=== PATIENT | female | born 1950 | race Caucasian/White ===

== ENCOUNTER → 2020-02-25 07:12 | Outpatient (CLI) | payer OTHER, SELFPAY ==
--- NOTE | ~2020-02-25 | XR_ITS ---
EXAMINATION: XR chest 2V EXAM DATE: 02/25/2020 07:52 INDICATION: Histoplasmosis. Cough since 2017. Right lung surgery. TECHNIQUE: Frontal and lateral projections of the chest obtained and reviewed. Comparison is made to prior examination from 05/06/2016. FINDINGS: Right midlung zone suture material. Mild hyperinflation. The lungs are clear. There are n o pleural effusions. The cardiomediastinal silhouette is within normal limits. There is no pneumoth orax suspected. The bones and soft tissues are unremarkable. IMPRESSION: No acute cardiopulmonary findings. Reviewed, dictated and finalized at location A. GRADER
--- NOTE | ~2020-02-25 | MM_ITS ---
EXAMINATION: MM screening elkin BI w cyn HISTORY: Screening mammogram TECHNIQUE: Craniocaudal and mediolateral oblique 3-D tomosynthesis images were obtained and synthetic 2-D images were generated. CAD analysis was submitted and interpreted. COMPARISON: 01/13/2018, 04/25/2016, 08/25/2014 bilateral digital screening mammogram examinations BREAST PARENCHYMAL COMPOSITION: There are scattered areas of fibroglandular density. FINDINGS: Stable right breast mass with minimal benign calcification on the current examination. Ther e is no evidence of suspicious mass, calcification, or architectural distortion to suggest malignancy in either breast. There has been no suspicious interval change. IMPRESSION: 1. No mammographic evidence of malignancy. 2. Recommend routine screening mammography in one year. BI-RADS Category 2: Benign finding(s). Reviewed, dictated and finalized at location A. SE SUPERVISOR
--- NOTE | ~2020-02-25 | XR_ITS ---
EXAMINATION: XR shoulder RT min 2V EXAM DATE: 02/25/2020 07:52 INDICATION: Right shoulder pain. TECHNIQUE: The following right shoulder projections obtained: frontal projection with internal rotati on, frontal projection with external rotation, Grashey, and axillary (4+ views). There is no prior s tudy for comparison. FINDINGS: No evidence of right shoulder rotator cuff calcific tendinosis. Unremarkable right nitza ohumeral and acromioclavicular joints. There are no acute fractures or dislocations identified. Ther e is no subcutaneous gas. The soft tissue is unremarkable. Right midlung zone suture material. There is a stent which could be in the left subclavian origin. IMPRESSION: 1. Unremarkable XR shoulder RT min 2V exam. Reviewed, dictated and finalized at location A. HOSPICE
== END ==
PROVIDERS: PCP Family Medicine; Visit Provider Family Medicine
DX: Z12.31 Encounter for screening mammogram for malignant neoplasm of breast (principal); M25.511 Pain in right shoulder; G89.29 Other chronic pain; B39.9 Histoplasmosis, unspecified
CPT/HCPCS: 71046; 73030; 77063; 77067

== ENCOUNTER 2020-07-24 09:26 | Outpatient (CLI) | payer OTHER, SELFPAY ==
--- NOTE | 2020-07-24 09:53 | ECHO_ITS ---
Patient Info Name: Rosita Moreno Age: 69 years : 1950 Gender: Female Ht: 62 in Wt: 118 lbs BSA: 1.53 m2 HR: 70 bpm BP: 135 / 68 mmHg Technical Quality: Good Exam Date: 07/24/2020 10:16 AM Exam Location: [facility] Patient Status: Outpatient Admit Date: 07/24/2020 Staff Ordering Physician: Jaime Yung DO Foreign Exchange Student Coordinator: Gabrielle Valiente RDCS Attending Provider: Jaime Yung DO Referring Physician: Dilshad SAHA; Exam Type: CA echo doppler color flow Study Info Indications - monson Complete two-dimentional, color flow and Doppler transthoracic echocardiogram is performed with agitated saline and with contrast to opacify the left ventricle and to improve the delineation of the left ventricle endocardial borders. Complete two-dimensional, color flow and Doppler transthoracic echocardiogram is performed. Summary 1. Complete two-dimensional, color flow and Doppler transthoracic echocardiogram is performed. 2. Left ventricular chamber dimension is normal. 3. Left ventricular systolic function is normal, estimated at 65-70%. 4. The left ventricular diastolic function is grade I diastolic dysfunction. 5. E/e' 13 is mildly elevated. 6. There is trace mitral valve regurgitation. 7. There is trace tricuspid valve regurgitation. 8. No pulmonary hypertension, estimated pulmonary arterial systolic pressure is 24 mmHg. Left Ventricle E/e' 13 is mildly elevated. Left ventricular chamber dimension is normal. Left ventricular systolic function is normal, estimated at 65-70%. The left ventricular diastolic function is grade I diastolic dysfunction. Right Ventricle Right ventricular chamber dimension is normal. Right ventricular systolic function is normal. Left Atria Left atrial chamber dimension is normal. Right Atria Right atrial chamber dimension is normal. Aortic Valve The aortic valve is trileaflet. There is no aortic valve stenosis. There is no aortic valve regurgitation. Pulmonic Valve There is no pulmonic regurgitation. Mitral Valve There is no mitral valve stenosis. There is trace mitral valve regurgitation. Tricuspid Valve There is trace tricuspid valve regurgitation. No pulmonary hypertension, estimated pulmonary arterial systolic pressure is 24 mmHg. Pericardium/Pleural There is no pericardial effusion. Inferior Vena Cava Normal inferior vena cava with >50% collapse upon inspiration consistent with normal right atrial pressure, 5 mmHg. Aorta The aortic root size at the sinus of Valsalva is normal. Left Ventricular Outflow Tract Name Value Normal LVOT 2D LVOT Diameter 2.0 cm LVOT Doppler LVOT Peak Gradient 4 mmHg LVOT Mean Gradient 3 mmHg LVOT VTI 25 cm LVOT VTI/AV VTI Ratio 1.0 LVOT Stroke Volume 74 ml LVOT CO 15.1 l/min LVOT CI 9.9 l/min/m2 Pulmonic Valve Name
== END 2020-07-24 09:27 | disposition home or self-care (01) ==
LOC: ANHCARD 09:28
PROVIDERS: PCP Family Medicine; Visit Provider Internal Medicine Cardiovascular Disease
DX: R06.00 Dyspnea, unspecified (principal)
CPT/HCPCS: C8929

== ENCOUNTER → 2020-08-05 06:34 | Outpatient (CLI) | payer OTHER, SELFPAY ==
[2020-08-05 17:12] LABS: SARS-CoV-2 RNA PCR Negative
== END ==
PROVIDERS: PCP Family Medicine; Visit Provider Family Medicine
DX: R68.89 Other general symptoms and signs (principal); Z20.822 Contact with and (suspected) exposure to COVID-19
CPT/HCPCS: C9803; U0003; U0005

== ENCOUNTER → 2023-01-05 12:41 | Outpatient (CLI) | payer MEDICARE, SELFPAY ==
--- NOTE | ~2023-01-05 | MM_ITS ---
EXAMINATION: MM screening elkin BI w cyn HISTORY: Screening mammogram TECHNIQUE: Craniocaudal and mediolateral oblique 3-D tomosynthesis images were obtained and synthetic 2-D images were generated. CAD analysis was submitted and interpreted. COMPARISON: 02/25/2020, 01/13/2018 bilateral screening mammogram examinations BREAST PARENCHYMAL COMPOSITION: There are scattered areas of fibroglandular density. FINDINGS: There is a stable circumscribed approximately 5.8 x 8.3 mm mass with benign calcification i n the central right breast, likely a benign fibroadenoma. There is no evidence of suspicious mass, ca lcification, or architectural distortion to suggest malignancy in either breast. There has been no zuñiga spicious interval change. IMPRESSION: 1. Benign finding. No mammographic evidence of malignancy. 2. Recommend routine screening mammography in one year. BI-RADS Category 2: Benign finding(s). Reviewed, dictated and finalized at location A. INUM POURER
== END ==
PROVIDERS: Visit Provider Family Medicine
DX: Z12.31 Encounter for screening mammogram for malignant neoplasm of breast (principal)
CPT/HCPCS: 77063; 77067

== ENCOUNTER 2023-01-25 07:30 | Outpatient (CLI) | payer MEDICARE, SELFPAY ==
--- NOTE | ~2023-01-25 | US_ITS ---
EXAMINATION: US art doppler w press UE BI DATE: 01/25/2023 08:17 INDICATION: Decreased right upper extremity pulses TECHNIQUE: Segmental pressures and plethysmographic and Doppler waveforms of the upper extremity ursula anna were obtained. COMPARISON: None. FINDINGS: Right and left brachial artery pressures of 150 mm Hg and 143 mm Hg, respectively, are concordant (no rmal difference <= 30 mmHg). The right finger:brachial systolic pressure ratio is 1.11 (normal > 0.8) . Segmental pressure gradients are normal. Arterial waveforms are triphasic at the right brachial art rakesh and biphasic at the remaining arteries in the right upper extremity with brisk systolic upstrokes throughout (normal upstroke < 0.2 s). The left finger:brachial systolic pressure ratio is 2.99. Segmental pressure gradients are normal. Ar terial waveforms are triphasic at the left axillary and brachial arteries and biphasic at the remaini ng arteries in the left upper limb with brisk systolic upstrokes throughout. IMPRESSION: 1. No significant arterial occlusive disease to either upper limb with normal bilateral finger brachi al indices. Reviewed, dictated and finalized at location A. NG AND MOLDING MACHINE OPERATOR IMPRESSION: 1. No significant arterial occlusive disease to either upper limb with normal b ilateral finger brachial indices.
== END 2023-01-25 07:31 | disposition home or self-care (01) ==
LOC: CHSIMG 07:31
PROVIDERS: PCP Family Medicine; Visit Provider Family Medicine
DX: I77.1 Stricture of artery (principal)
CPT/HCPCS: 93923

== ENCOUNTER 2023-02-02 08:54 | Outpatient (CLI) | payer MEDICARE, SELFPAY ==
--- NOTE | ~2023-02-02 | US_ITS ---
EXAMINATION: US aorta DATE: 02/02/2023 09:20 INDICATION: Stricture of the aorta TECHNIQUE: Grayscale, color Doppler, and pulsed Doppler images of the aorta and common iliac arteries were obtained. COMPARISON: None. FINDINGS: Visualized inferior vena cava is normal. The proximal aorta measures 1.6 cm. The mid aorta measures 1 .7 cm. The distal aorta measures 1.2 cm. The right common iliac artery measures 0.8 cm. The left comm on iliac artery measures 0.8 cm. On color Doppler there are normal triphasic waveforms in the abdomin al aorta and the bilateral iliac arteries. IMPRESSION: 1. Normal caliber abdominal aorta. Reviewed, dictated and finalized at location A. SOLUTION ARCHITECT
== END 2023-02-02 08:55 | disposition home or self-care (01) ==
PROVIDERS: PCP Family Medicine; Visit Provider Family Medicine
DX: I77.1 Stricture of artery (principal)
CPT/HCPCS: 76775

== ENCOUNTER 2023-10-28 13:30 | Outpatient (CLI) | payer MEDICARE, SELFPAY | END 2023-10-28 13:31 | disposition home or self-care (01) | LOC: ANHAUDIO 13:32 | PROVIDERS: PCP Family Medicine; Visit Provider Family Medicine | DX: H90.3 Sensorineural hearing loss, bilateral (principal) | CPT/HCPCS: 92557; 92567 ==

== ENCOUNTER 2024-01-10 10:26 | Outpatient (CLI) | payer MEDICARE, SELFPAY ==
--- NOTE | ~2024-01-10 | MM_ITS ---
EXAMINATION: MM screening elkin BI w cyn HISTORY: Screening TECHNIQUE: Craniocaudal and mediolateral oblique 3-D tomosynthesis images were obtained and synthetic 2-D images were generated. CAD analysis was submitted and interpreted. COMPARISON: Comparison to multiple prior studies sequentially, with oldest reviewed study dated 10/2014. BREAST PARENCHYMAL COMPOSITION: Not dense: There are scattered areas of fibroglandular density. FINDINGS: There is a right breast mass in the central aspect of the right breast, middle third. The l eft breast is stable without evidence for malignancy. IMPRESSION: 1. Right breast mass, partially obscured by fibroglandular tissue. 2. Additional mammographic views and possible breast ultrasound are recommended. BI-RADS Category 0: Incomplete: Needs additional imaging evaluation. Reviewed, dictated and finalized at location B. H ELECTRICIAN IMPRESSION: 1. Right breast mass, partially obscured by fibroglandular tissue. 2. Additional mammographic views and possible breast ultrasound are recommended . BI-RADS Category 0: Incomplete: Needs additional imaging evaluation.
== END 2024-01-10 10:27 | disposition home or self-care (01) ==
PROVIDERS: PCP Family Medicine; Visit Provider Family Medicine
DX: Z12.31 Encounter for screening mammogram for malignant neoplasm of breast (principal); R92.8 Other abnormal and inconclusive findings on diagnostic imaging of breast
CPT/HCPCS: 77063; 77067

== ENCOUNTER 2024-01-24 12:59 | Outpatient (CLI) | payer MEDICARE, SELFPAY ==
--- NOTE | ~2024-01-24 | MMUS_ITS ---
EXAMINATION: MM diagnostic elkin RT w cyn, US breast RT limited HISTORY: Follow-up right breast mass TECHNIQUE: Additional 3-D tomosynthesis images of the right breast were performed and synthetic 2-D i mages were generated. CAD analysis was submitted and interpreted. High resolution Limited right breas t ultrasound was performed. COMPARISON: Comparison to multiple prior studies sequentially, with oldest reviewed study dated 10/2016. BREAST PARENCHYMAL COMPOSITION: Not dense: There are scattered areas of fibroglandular density. FINDINGS: MAMMOGRAPHIC FINDINGS: There is a low-density mass in the upper inner quadrant of the right breast, middle third. There is a n associated internal calcification. There are no suspicious clustered calcifications or architectura l distortion. ULTRASOUND: Limited right breast ultrasound: 1:00, 2 cm from the nipple there is an oval hypoechoic mass measurin g 10 x 8 x 3 mm with internal echogenic focus, consistent with calcification. There is parallel orien tation, circumscribed margins, no internal vascularity or posterior features. This corresponds to the mammographic finding. No other masses are identified. IMPRESSION: 1. Probable benign right breast mass at 1:00, 2 cm from the nipple measuring 10 mm. 2. Recommend 6 month follow-up Limited right breast ultrasound and diagnostic mammogram. BI-RADS category 3, probably benign findings. Reviewed, dictated and finalized at location B. RUSH ARTIST PHOTOGRAPHY IMPRESSION: 1. Probable benign right breast mass at 1:00, 2 cm from the nipple measuring 10 mm. 2. Recommend 6 month follow-up Limited right breast ultrasound and diagnostic m ammogram. BI-RADS category 3, probably benign findings.
== END 2024-01-24 13:00 | disposition home or self-care (01) ==
PROVIDERS: PCP Family Medicine; Visit Provider Family Medicine
DX: N63.10 Unspecified lump in the right breast, unspecified quadrant (principal); R92.8 Other abnormal and inconclusive findings on diagnostic imaging of breast
CPT/HCPCS: 76642; 77061; 77065; G0279

== ENCOUNTER 2024-07-25 10:04 | Outpatient (CLI) | payer MEDICARE, SELFPAY ==
--- NOTE | ~2024-07-25 | MMUS_ITS ---
EXAMINATION: MM diagnostic elkin RT w cyn, US breast RT limited HISTORY: Follow-up right breast mass TECHNIQUE: Additional 3-D tomosynthesis images of the right breast were performed and synthetic 2-D i mages were generated. CAD analysis was submitted and interpreted. High resolution Limited right breas t ultrasound was performed. COMPARISON: Comparison to multiple prior studies sequentially, with oldest reviewed study dated 10/2016. BREAST PARENCHYMAL COMPOSITION: Not dense: There are scattered areas of fibroglandular density. FINDINGS: MAMMOGRAPHIC FINDINGS: Low-density mass in the upper outer quadrant of the right breast, middle third is unchanged from prio r examination allowing for technique. No new masses, calcifications or architectural distortion. ULTRASOUND: Limited right breast ultrasound: At 1:00, 2 cm from the nipple there is an oval hypoechoic mass with echogenic hilum measuring 10 x 8 x 4 mm compared with 10 x 8 x 3 mm on 01/24/2024. IMPRESSION: 1. Stable benign-appearing right breast mass, compatible with intramammary lymph node. 2. Routine yearly screening mammogram and regular clinical breast examination are recommended. BI-RADS Category 2: Benign finding(s). Reviewed, dictated and finalized at location A. IMPRESSION: 1. Stable benign-appearing right breast mass, compatible with intramammary lymp h node. 2. Routine yearly screening mammogram and regular clinical breast examination a re recommended. BI-RADS Category 2: Benign finding(s).
--- OUTSIDE RECORDS SUMMARY | 2024-07-25 11:24 | XMS_ITS | Clinical Summary ---
Author Organization [facility] al Address [address] [place] [address] Care Team Providers Care Electrostatic Painter Name Role Phone Marco Szymanski DO Primary Care Provider [phone] Allergies No known active allergies Medical History Medical History Date Comments Pain in joint Arthralgia of mu ltiple sites - (Added by TW Conv) Personal history of other di seases of the circulatory system History of hypertension - (A dded by TW Conv) Personal history of other en docrine, nutritional and metabolic disease History of hyperchol esterolemia - (Added by TW Conv) Social History Tobacco Use Types Packs/Day Years Used Date Smoking Tobacco: Never Comments Unknown Sex and Gender Information Value Date Recorded Sex Assigned at Not on file Legal Sex 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 Gender Identity Female 03/26/2020 1:00 PM WELL SURVEYING ENGINEER Sexual Orientation Straight 03/26/2020 1: 00 PM WELL SURVEYING ENGINEER Obstetrics History Last Filed Vital Signs Vital Sign Reading Time Taken Comments Blood Pressure 152/64 05/02/2017 1:00 PM CDT Pulse 68 05/02/2017 1:00 PM CDT Temperature - - Respiratory Rate - - Oxygen Saturation 96% 08/18/2016 12:37 PM CDT Inhaled Oxygen Concentration - - Weight 62.2 kg (137 lb 3.1 oz) 05/02/2017 1:00 P M CDT Height 157.5 cm (5' 2) 05/02/2017 1:00 PM CDT Body Mass Index 25.09 05/02/2017 1:00 PM CDT Plan of Treatment Not on file Insurance [employer] [facility] [employer]LINK OPEN ACCESS [place] [address] Care Teams Electrostatic Painter Relationship Specialty Start Date End Date Marco Szymanski DO PCP - General 06/14/16
--- OUTSIDE RECORDS SUMMARY | 2024-07-25 11:24 | XMS_ITS | Continuity of Care Document ---
Author Organization [facility] Address [address] [place] [address] Phone Care Team Providers Care Housekeeping Director Name Role Phone Carlos LINARES MD, Emilio Unavailable Unavailable Advance Directives Directive Yes / No Effective Date File Name No Information Encounters Encounter Description Practice Location Reason(s) For Visit Diagnoses Date Provider Providers Copied on Encounter [facility] [employer] [facility], [address], [id number], [place] tel:[phone] [facility] No Information Apr-0 5201 3 Carlos Jhaveri. [address] [facility], [facility] [address], [place], [place], [id number] , [place]. tel:[phone] Family History Family Member Type Diagnosis Age At Onset No Information Payers Payer name Insurance type Covered green party ID Authoriza tion(s) No Information Social History Type Description Quantity Date Captured Comments Sex Female Smoking Status No Information Chief Complaint And Reason For Visit No Information Reason For Referral Reason For Referral No Information History Of Present Illness Encounter Date Complaint History Of Prese nt Illness No Information Functional Status Date Functional Assessmen t No Information Instructions Date Instruction Additional Infor mation No Information Assessments Type Assessment Date No Information Patient Care Teams Name Effective Dates (start - stop) Status Members No Information
--- OUTSIDE RECORDS SUMMARY | 2024-07-25 11:24 | XMS_ITS | Referral Summary ---
Author Organization 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
--- OUTSIDE RECORDS SUMMARY | 2024-07-25 11:24 | XMS_ITS | Continuity of Care Document ---
Author Organization [facility] Address [address] [place] [address] [address] [place] [address] Phone Care Team Providers Care Seedling Sorter Name Role Phone Toby LINARES MD, Jarvis Unavailable Unavailable Procedures Procedure Date AFTER CATARACT LASER SURGERY CATARACT SURG W/IOL, 1 STAGE CATARACT SURG W/IOL, 1 STAGE Advance Directives Directive Yes / No Effective Date File Name No Information Encounters Encounter Description Practice Location Reason(s) For Visit Diagnoses Date Provider Providers Copied on Encounter Ophthalmology [facility], [address] [place] [address], [id number], tel:[phone] [address] [place] [address] [facility] No Information 8 Toby Conley. [address], [place], [place], [id number] , [place]. tel:[phone] Referring Provider: Jarvis Duncan, [address], [place], [address] . tel:[phone] Ophthalmology [facility], [address] [place] [address], [id number], tel:[phone] [address] [place] [address] [facility] No Information 5 Toby Conley. [address], [place], [place], [id number] , [place]. [phone] Referring Provider: Jarvis Duncan, [address], [place], [address] . tel:[phone] [facility], [address] [place] [address], [place], [id number], [place] tel:[phone] [address] [facility] No Information Toby Conley. [address], [address], [place], [place], [id number] , [place]. tel:[phone] Referring Provider: Jarvis Luis MD P, [address], [place], [address] . tel:[phone] Family History Family Member Type Diagnosis Age At Onset No Information Payers Payer name Insurance type Covered alliance party ID Authorrosendoa augusto(s) [employer] O CI [id number] Social History Type Description Quantity Date Captured [...]
== END 2024-07-25 10:05 | disposition home or self-care (01) ==
LOC: ANHIMG 10:07
PROVIDERS: PCP Family Medicine; Visit Provider Surgery
DX: N63.12 Unspecified lump in the right breast, upper inner quadrant (principal); R92.8 Other abnormal and inconclusive findings on diagnostic imaging of breast
CPT/HCPCS: 76642; 77061; 77065; G0279